=== PATIENT | female | born 1945 ===

== ENCOUNTER → 2023-11-08 08:51 | Outpatient (CLI) | payer OTHER, SELFPAY ==
--- NOTE | 2023-11-08 08:56 | DI.RAD.S_ITS ---
PROCEDURE: XR LUMBAR SPINE 2-3V INDICATIONS: right sciatic pain, restricted hip ER TECHNIQUE: 3 views of the lumbar spine were acquired. COMPARISON: None. FINDINGS: Bones: 5 [id number] vertebrae are present. There is normal bony alignment. No vertebral body compression fractures. No suspicious bony lesions. Degenerative disc disease, moderate at L4-L5 and L5-S1, mild at other levels. Moderate facet arthropathy at L3-L4, L4-L5 and L5-S1. Soft tissues: Overlying bowel gas pattern is normal. No suspicious soft tissue calcifications. IMPRESSION: 1. Moderate degenerative disc and facet disease. 2. Dictated by: Domitila Wright M.D. on 11/08/2023 at 16:13 Approved by: Domitila Wright M.D. on 11/08/2023 at 16:14
--- NOTE | 2023-11-08 08:56 | DI.RAD.S_ITS ---
PROCEDURE: XR HIP W PEL IF DONE RT 2V INDICATIONS: right sciatic pain, restricted hip ER TECHNIQUE: 2 views of the hip were acquired. COMPARISON: None. FINDINGS: Bones: No fractures or dislocations. No suspicious bony lesions. The visualized pelvic ring appears intact. Mild degenerative joint disease in hips and sacroiliac joints bilaterally. Soft tissues: No suspicious soft tissue calcifications or masses. IMPRESSION: Mild degenerative joint disease. Dictated by: Domitila Wright M.D. on 11/08/2023 at 16:23 Approved by: Domitila Wright M.D. on 11/08/2023 at 16:24
== END ==
LOC: RAD 08:55
PROVIDERS: PCP Registered Nurse; Referring Provider Registered Nurse; Visit Provider Registered Nurse
DX: M51.16 Intervertebral disc disorders with radiculopathy, lumbar region (principal); M51.17 Intervertebral disc disorders with radiculopathy, lumbosacral region; M47.26 Other spondylosis with radiculopathy, lumbar region; M47.27 Other spondylosis with radiculopathy, lumbosacral region; M46.1 Sacroiliitis, not elsewhere classified; M16.0 Bilateral primary osteoarthritis of hip
CPT/HCPCS: 72100; 73502

== ENCOUNTER → 2023-11-24 09:58 | Outpatient (CLI) | payer OTHER, SELFPAY ==
--- NOTE | 2023-11-24 | DI.MG.S_ITS ---
BILATERAL DIGITAL SCREENING MAMMOGRAM 3D/2D WITH CAD: 11/24/2023 CLINICAL: Routine screening. Comparison is made to exams dated: 04/12/2014 mammogram, 10/19/2011 mammogram, and 07/27/2007 mammogram - [facility]. Both breasts are heterogeneously dense, which may obscure small masses (category c / 51-75% glandular tissue). Current study was also evaluated with a Computer Aided Detection (CAD) system. No significant masses, calcifications, or other findings are seen in either breast. There has been no significant interval change. IMPRESSION: NEGATIVE There is no mammographic evidence of malignancy. A 1 year screening mammogram is recommended. Based on the Tyrer Cuzick model (a risk assessment model) the patient's lifetime risk is 3.2% and her 10 year risk is 0.0%. According to the ACR, ACS, and NCCN guidelines, an annual breast MRI exam along with mammogram is recommended if the patient's lifetime risk is 20% or greater. This exam was interpreted at Station ID: [id number]. NOTE: For mammograms, a report in lay terms will be sent to the patient. Approximately 15% of breast malignancies will not be visualized mammographically. In the management of a palpable breast mass, a negative mammogram must not discourage biopsy of a clinically suspicious lesion. Electronically Signed By: Dawit moy/angelo:11/25/2023 12:04:41 letter sent: Normal Exam ACR BI-RADS Category 1: Negative [id number]
--- NOTE | 2023-11-24 | DI.RAD.S_ITS ---
Bone Density Report Name: ALISSON MA Age: 78 Sex: Female Ethnicity: White Date of : 1945 Indication: postmenopausal; screening for osteoporosis; Referring Provider: SON SIMS Study: Bone densitometry was performed. Exam Date: November 24, 2023 Accession number: [id number] Bone Density: Region BMD T-score Z-score Classification AP Spine(L1-L4) 1.032 -0.1 2.4 Normal Femoral Neck (Left) 0.723 -1.1 1.0 Osteopenia Total Hip (Left) 0.834 -0.9 1.0 Normal Femoral Neck (Right) 0.684 -1.5 0.7 Osteopenia Total Hip (Right) 0.832 -0.9 1.0 Normal Total Hip Mean 0.833 -0.9 1.0 Normal World Health Organization criteria for BMD impression classify patients as: Normal (T-score at or above -1.0), Osteopenia (T-score between -1.0 and -2.5), or Osteoporosis (T-score at or below -2.5). 10-year Fracture Risk(1): Major Osteoporotic Fracture 10.0% Hip Fracture 2.4% Reported Risk Factors: [place] (), Neck BMD=0.684, BMI=18.6 (1) FRAX(R) Version 3.08. Fracture probability calculated for an untreated patient. Fracture probability may be lower if the patient has received treatment. Previous Exams: -- Region Exam Age BMD T-score BMD Change BMD Change Date g/cm2 vs Baseline vs Previous -- AP Spine (L1-L4) 11/24/2023 78 1.032 -0.1 -0.142 (-12.1%)# -0.121 (-10.5%)# 04/12/2014 68 1.153 1.0 -0.021 (-1.8%) -0.021 (-1.8%) 10/19/2011 66 1.174 1.2 Total Hip(Left) 11/24/2023 78 0.834 -0.9 -0.111 (-11.7%)# -0.084 (-9.1%)# 04/12/2014 68 0.918 -0.2 -0.027 (-2.9%) -0.027 (-2.9%) 10/19/2011 66 0.945 0.0 Total Hip(Right) 11/24/2023 78 0.832 -0.9 -0.123 (-12.9%)# -0.120 (-12.6%)# 04/12/2014 68 0.952 0.1 -0.003 (-0.3%) -0.003 (-0.3%) 10/19/2011 66 0.955 0.1 -- *Denotes significance at 95% confidence level, LSC for AP Spine = 0.022 g/cm2, LSC for Total Hip = 0.027 g/cm2 # Denotes dissimilar scan types or analysis methods Impression: The patient has low bone mass, based on the Right Femoral Neck T-score. The patient has an estimated ten-year risk of hip fracture of 2.4% and an estimated ten-year risk of major fracture of 10%, based on the WHO FRAX algorithm. No significant bone loss was observed. Discussion: BONE DENSITY IS LOW AT ONE OR MORE SKELETAL SITES. This patient's lowest T-score is low at one or more skeletal sites. It meets the World Health Organization's (WHO) criteria for low bone mass (T-score between -1.0 and -2.5). The patient's 10-year risk of fracture as calculated by FRAX is less than the threshold where pharmacological therapy is recommended by the National Osteoporosis Foundation (NOF). However, all treatment decisions require clinical judgment and consideration of individual patient factors, including patient preferences, comorbidities, previous drug use, risk factors not captured in the FRAX model (e.g., frailty, falls, vitamin D deficiency, increased bone turnover, interval significant decline in bone density) and possible under or overestimation of fracture risk by FRAX. The patient should follow a healthful lifestyle (good nutrition with adequate calcium and vitamin D, and appropriate weight-bearing exercise). Follow-Up: Consider repeating this study in 2 to 3 years to reassess this patient's status, or sooner if there is some new clinical indication. Reported by: WILVER VILLA M.D. on 11/24/2023 10:36:00 AM.
== END ==
LOC: RAD 09:59
PROVIDERS: PCP Family Medicine; Referring Provider Registered Nurse; Visit Provider Registered Nurse
DX: Z12.31 Encounter for screening mammogram for malignant neoplasm of breast (principal); M85.851 Other specified disorders of bone density and structure, right thigh; R92.333 Mammographic heterogeneous density, bilateral breasts; Z13.820 Encounter for screening for osteoporosis; Z78.0 Asymptomatic menopausal state
CPT/HCPCS: 77063; 77067; 77080

== ENCOUNTER → 2023-12-29 14:32 | Outpatient (CLI) | payer OTHER, SELFPAY ==
--- NOTE | 2023-12-29 14:33 | DI.MRI.S_ITS ---
PROCEDURE: MR LUMBAR SPINE WO CON INDICATIONS: RADICULAR PAIN OF RLE TECHNIQUE: Noncontrast sagittal T1 spin echo and T2 fast echo, sagittal STIR, and T2 fast spin echo through the lumbar spine. In cases with scoliosis, additional coronal T2 fast spin echo may be performed. COMPARISON: [facility], CR, XR LUMBAR SPINE 2-3V, 11/08/2023, 9:03. FINDINGS: Image quality: Excellent. Alignment and Curvature: Minimal retrolisthesis is seen at T11-T12. There is also minimal retrolisthesis seen at the L5-S1 level. Bone Marrow: Marrow is of normal overall signal. No acute vertebral body compression fractures. Spinal Cord: Conus medullaris terminates at the L1 level. Visualized cord demonstrates normal signal and size. Paraspinous Soft Tissues: No paravertebral masses. T11-T12: Moderate loss of disc height is seen. Reactive marrow endplate changes are seen, which demonstrate mixed T1 weighted and T2-weighted signal, and are attributed to a combination of edema and fatty metaplasia (Modic type I and Modic type II changes). Mild generalized disc bulge is seen. There is mild right-sided and moderate left-sided neural foraminal narrowing. Mild central canal narrowing is seen. T12-L1: Normal appearance. L1-L2: Normal appearance. L2-L3: Mild loss of disc height is seen. Loss of disc signal is seen. Mild generalized disc bulge is seen. There is a superimposed central disc protrusion. Mild bilateral neural foraminal narrowing is seen. Mild central canal narrowing is seen. L3-L4: Mild loss of disc height is seen. Loss of disc signal is seen. Mild to moderate disc bulge is seen, which is slightly eccentric to the left. There is a mild central disc protrusion. Mild facet joint hypertrophy is seen. Mild bilateral neural foraminal narrowing is seen. Mild to moderate central canal narrowing is seen. L4-L5: Mild to moderate loss of disc height and disc signal can be seen. Moderate disc bulge is seen, which is eccentric to the right. There is a superimposed right foraminal disc extrusion seen, as on series 2, image 7 and on series 5, image 23. There is at least moderate facet hypertrophy seen, right worse than left. There is moderate to severe right-sided neural foraminal narrowing, with a degree of compression upon the exiting right L4 nerve root. There is moderate left-sided neural foraminal narrowing. Moderate central canal narrowing is seen. L5-S1: There is at least moderate loss of disc height and disc signal. Reactive marrow endplate changes are seen, which are hyperintense on T1-weighted and T2-weighted imaging and most consistent with fatty metaplasia (Modic type II changes). Moderate disc bulge is seen, with a mild central disc protrusion. There is moderate right-sided and [id number] left-sided facet hypertrophy. There is at least moderate bilateral neural foraminal narrowing. There is a degree of compression seen upon the exiting nerve roots. Mild central canal narrowing is seen. IMPRESSION: At the L4-L5 level, there is a right foraminal disc extrusion seen, with associated moderate to severe right-sided neural foraminal narrowing and compression upon the exiting right L4 nerve root. Milder degenerative changes are seen elsewhere. Dictated by: Rajesh Barros M.D. on 12/29/2023 at 15:37 Approved by: Rajesh Barros M.D. on 12/29/2023 at 15:41
== END ==
PROVIDERS: PCP Family Medicine; Referring Provider Registered Nurse; Visit Provider Registered Nurse
DX: M48.8X6 Other specified spondylopathies, lumbar region (principal); M54.10 Radiculopathy, site unspecified; M51.26 Other intervertebral disc displacement, lumbar region; M48.061 Spinal stenosis, lumbar region without neurogenic claudication; M47.816 Spondylosis without myelopathy or radiculopathy, lumbar region
CPT/HCPCS: 72148